=== PATIENT | male | born 1960 | race Hispanic/Latino ===

== ENCOUNTER 2022-10-19 03:03 | Inpatient (IN) | payer OTHER ==
[2022-10-19] VITALS (39 sets, daily range): BP systolic 133–191; BP diastolic 66–113
[~2022-10-19] VITALS: Ht 172.7 cm; Wt 84.4 kg
[2022-10-19] MEDS ORDERED: LORAZEPAM 2 MG/ML 1 ML VIAL ONE (03:09)
[2022-10-19] MEDS ORDERED: NITROGLYCERIN 0.4 MG SL TAB SL ONE (03:12)
[2022-10-19] MEDS ORDERED: NITROGLYCERIN 1GM OINT 1 INCH/1GM TD ONE ×2 (03:12→03:30)
[2022-10-19] MEDS ORDERED: HYDRALAZINE 20MG/ML VIAL ONE (03:12)
[2022-10-19] MEDS ORDERED: LABETALOL 20MG SYG IV ONE (03:13)
[2022-10-19 03:25] LABS: BASOPHILS % (AUTO) 0.8 % (0.0-5.0); EOSINOPHILS % (AUTO) 4.2 % (0.0-8.0); HEMATOCRIT 39.5 % (42-54); LYMPHOCYTES % (AUTO) 23.9 % (21.0-51.0); MEAN CORPUSCULAR HEMOGLOBIN 28.8 pg (27.0-33.0); MEAN CORPUSCULAR HGB CONC 31.1 g/dL (32.0-36.0); MEAN CORPUSCULAR VOLUME 92.5 fL (79-99); MONOCYTES % (AUTO) 6.2 % (3.0-13.0); NEUTROPHILS % (AUTO) 64.6 % (40.0-77.0); PLATELET COUNT (AUTO) 216 K/uL (130-400); RED BLOOD CELL COUNT(AUTO) 4.27 MIL/uL (4.50-6.20); RED CELL DISTRIBUTION WIDTH 15.8 % (11.0-15.5); WHITE BLOOD COUNT (AUTO) 10.9 K/uL (4.8-10.8)
[2022-10-19] MEDS ORDERED: NITROGLYCERIN 0.4 MG SL TAB SL PRN (03:30)
[2022-10-19] MEDS ORDERED: LABETALOL 20MG VIAL IV ONE ×2 (03:30)
[2022-10-19] MEDS ORDERED: LORAZEPAM 2 MG/ML 1 ML VIAL IVP ONE (03:30)
[2022-10-19] MEDS ORDERED: FUROSEMIDE 40MG VIAL IV ONE (03:30)
[2022-10-19 03:35] LABS: CREATININE 5.7 mg/dL (0.5-1.5); POTASSIUM 5.4 mmol/L (3.5-5.1)
[2022-10-19 03:40] LABS: ALBUMIN 4.1 g/dL (3.5-5.0); TOTAL PROTEIN, SERUM 8.3 g/dL (6.0-8.3)
[2022-10-19 04:07] LABS: B-TYPE NATRIURETIC PEPTIDE 1650 pg/mL (0-100)
[2022-10-19 04:13] LABS: APPEARANCE,URINE CLEAR (CLEAR); BILIRUBIN,URINE NEGATIVE (NEGATIVE); COLOR,URINE LIGHT-YELLOW (YELLOW); GLUCOSE, URINE (UA) NEGATIVE (NEGATIVE); KETONES,URINE NEGATIVE (NEGATIVE); LEUKOCYTE ESTERASE ,URINE NEGATIVE Leu/uL (NEGATIVE); NITRATE,URINE NEGATIVE (NEGATIVE); OCCULT BLOOD,URINE SMALL (NEGATIVE); PROTEIN,URINE 300 mg/dL (NEGATIVE); UROBILINOGEN,URINE 0.2 mg/dL (0.2-1.0)
[2022-10-19 04:18] LABS: BACTERIA,URINE RARE /HPF (None Seen)
[2022-10-19 04:49] LABS: ABG BASE EXCESS -1.8 mmol/L (-2.0-3.0); ABG HCO3 23.3 mmol/L (21.0-28.0); ABG OXYGEN SATURATION 99.6 % (95.0-99.0); ABG PCO2 41 mmHg (35-48)
[2022-10-19] MEDS ORDERED: ONDANSETRON 4MG INJ IVP PRN (07:30)
[2022-10-19] MEDS ORDERED: PHARMACY COMMUNICATION MISC SCH (07:30)
[2022-10-19] MEDS: PANTOPRAZOLE 40 MG TAB DR PO SCH (07:46)
[2022-10-19] MEDS ORDERED: SODIUM CHLORIDE 3% FOR INHALATION 4 ML/AMP VIAL.NEB IH ONE ×3 (08:24→18:20)
[2022-10-19] MEDS: CEFEPIME HCL 1 GM VIAL IVPB SCH ×2 (08:35→21:32)
[2022-10-19] MEDS: AMLODIPINE 5 MG TAB PO SCH (08:35)
[2022-10-19] MEDS: DOXYCYCLINE HYCLATE 100 MG TABLET PO SCH ×2 (08:35→21:33)
[2022-10-19] MEDS: Vitamin B Complex/Vit C/Folic Acid PO SCH (08:35)
[2022-10-19] MEDS: METOPROLOL TARTRATE 25 MG TAB PO SCH ×2 (08:35→21:33)
[2022-10-19] MEDS: BUDESONIDE 0.5 MG/2 ML INH IH SCH ×2 (09:12→18:40)
[2022-10-19] MEDS: ASPIRIN 81MG CHEW TAB PO SCH (10:02)
[2022-10-19] MEDS: HYDRALAZINE 20MG/ML VIAL IV PRN ×2 (10:03→14:55)
[2022-10-19 10:08] LABS: HEMOGLOBIN A1C 6.3 % (4.0-6.0)
[2022-10-19 10:28] LABS: THYROID STIMULATING HORMONE 2.45 uIU/mL (0.36-3.74)
[2022-10-19 10:41] LABS: CRP QUANTITATIVE 5.4 mg/L (0.00-9.0)
[2022-10-19 13:42] LABS: AMPHET/METH SCREEN,URINE NEGATIVE (NEGATIVE); BARBITURATE SCREEN, URINE NEGATIVE (NEGATIVE); BENZODIAZEPINES SCREEN,URINE NEGATIVE (NEGATIVE); CANNABINOID SCREEN,URINE NEGATIVE (NEGATIVE); COCAINE SCREEN,URINE NEGATIVE (NEGATIVE); OPIATE SCREEN,URINE NEGATIVE (NEGATIVE); PHENCYCLIDINE SCREEN,URINE NEGATIVE (NEGATIVE)
[2022-10-19] MEDS: HYDRALAZINE 25MG TABLET PO SCH ×3 (15:00→21:00)
[2022-10-19] MEDS ORDERED: HEPARIN 5,000 UNIT VIAL SQ SCH (16:00)
[2022-10-19] MEDS: ACETAMINOPHEN 500 MG TABLET PO PRN ×2 (18:12→21:33)
[2022-10-20] VITALS (26 sets, daily range): BP systolic 135–179; BP diastolic 66–122
[2022-10-20 03:24] LABS: ABG BASE EXCESS 0.2 mmol/L (-2.0-3.0); ABG HCO3 24.4 mmol/L (21.0-28.0); ABG OXYGEN SATURATION 94.4 % (95.0-99.0); ABG PCO2 38 mmHg (35-48)
[2022-10-20] MEDS: HYDRALAZINE 25MG TABLET PO SCH ×2 (04:08→13:59)
[2022-10-20 04:14] LABS: HEMATOCRIT 31.7 % (42-54); MEAN CORPUSCULAR HEMOGLOBIN 29.2 pg (27.0-33.0); MEAN CORPUSCULAR HGB CONC 31.2 g/dL (32.0-36.0); MEAN CORPUSCULAR VOLUME 93.5 fL (79-99); RED BLOOD CELL COUNT(AUTO) 3.39 MIL/uL (4.50-6.20); RED CELL DISTRIBUTION WIDTH 15.7 % (11.0-15.5); WHITE BLOOD COUNT (AUTO) 7.2 K/uL (4.8-10.8)
[2022-10-20 04:27] LABS: INR 1.03 (0.85-1.15); PROTHROMBIN TIME 11.2 SEC (9.6-11.6)
[2022-10-20 04:28] LABS: PARTIAL THROMBOPLASTIN TIME 31.3 SEC (26.3-35.5)
[2022-10-20 04:47] LABS: ALBUMIN 2.9 g/dL (3.5-5.0); CREATININE 5.6 mg/dL (0.5-1.5); MAGNESIUM 1.8 mg/dL (1.80-2.40); POTASSIUM 5.3 mmol/L (3.5-5.1); THYROID STIMULATING HORMONE 1.93 uIU/mL (0.36-3.74); TOTAL PROTEIN, SERUM 6.2 g/dL (6.0-8.3)
[2022-10-20] MEDS: BUDESONIDE 0.5 MG/2 ML INH IH SCH ×2 (06:29→18:46)
[2022-10-20] MEDS: PANTOPRAZOLE 40 MG TAB DR PO SCH (06:49)
[2022-10-20] MEDS: ACETAMINOPHEN 500 MG TABLET PO PRN ×2 (08:31→13:30)
[2022-10-20] MEDS ORDERED: CEFEPIME HCL 1 GM VIAL IVPB SCH (09:00)
[2022-10-20] MEDS: METOPROLOL TARTRATE 25 MG TAB PO SCH ×2 (11:33→20:25)
[2022-10-20] MEDS: AMLODIPINE 5 MG TAB PO SCH (13:55)
[2022-10-20] MEDS: ASPIRIN 81MG CHEW TAB PO SCH (13:55)
[2022-10-20] MEDS: Vitamin B Complex/Vit C/Folic Acid PO SCH (13:55)
[2022-10-20] MEDS: DOXYCYCLINE HYCLATE 100 MG TABLET PO SCH ×2 (13:55→20:26)
[2022-10-20] MEDS: HEPARIN 5,000 UNIT VIAL SQ SCH ×2 (14:02→20:25)
[2022-10-20] MEDS ORDERED: ISOSORBIDE MONO 30MG SR TAB PO ONE (14:30)
[2022-10-20] MEDS ORDERED: CEFEPIME HCL 1 GM VIAL IVP SCH (21:00)
[2022-10-20] MEDS ORDERED: HYDRALAZINE 25MG TABLET PO SCH (21:00)
[2022-10-21 03:00] VITALS: BP 179/59
[2022-10-21] MEDS: BUDESONIDE 0.5 MG/2 ML INH IH SCH (07:09)
[2022-10-21 07:54] LABS: BASOPHILS % (AUTO) 0.9 % (0.0-5.0); EOSINOPHILS % (AUTO) 5.5 % (0.0-8.0); HEMATOCRIT 31.6 % (42-54); LYMPHOCYTES % (AUTO) 13.7 % (21.0-51.0); MEAN CORPUSCULAR HEMOGLOBIN 29.1 pg (27.0-33.0); MEAN CORPUSCULAR VOLUME 91.1 fL (79-99); NEUTROPHILS % (AUTO) 70.6 % (40.0-77.0); PLATELET COUNT (AUTO) 173 K/uL (130-400); RED BLOOD CELL COUNT(AUTO) 3.47 MIL/uL (4.50-6.20); RED CELL DISTRIBUTION WIDTH 15.6 % (11.0-15.5); WHITE BLOOD COUNT (AUTO) 6.6 K/uL (4.8-10.8)
[2022-10-21] MEDS: ACETAMINOPHEN 500 MG TABLET PO PRN ×2 (07:54→13:42)
[2022-10-21] MEDS: Vitamin B Complex/Vit C/Folic Acid PO SCH (07:54)
[2022-10-21] MEDS: PANTOPRAZOLE 40 MG TAB DR PO SCH (07:54)
[2022-10-21] MEDS: DOXYCYCLINE HYCLATE 100 MG TABLET PO SCH (07:54)
[2022-10-21] MEDS: METOPROLOL TARTRATE 25 MG TAB PO SCH (07:55)
[2022-10-21] MEDS: AMLODIPINE 5 MG TAB PO SCH (07:55)
[2022-10-21] MEDS: HYDRALAZINE 25MG TABLET PO SCH ×2 (07:58→13:41)
[2022-10-21] MEDS: ASPIRIN 81MG CHEW TAB PO SCH (07:58)
[2022-10-21 08:00] VITALS: BP 187/92
[2022-10-21] MEDS: HEPARIN 5,000 UNIT VIAL SQ SCH (08:03)
[2022-10-21 08:23] LABS: % IRON SATURATION 30.7 % (30-44)
[2022-10-21 08:43] LABS: B-TYPE NATRIURETIC PEPTIDE 444 pg/mL (0-100)
[2022-10-21 08:53] LABS: CREATININE 6.8 mg/dL (0.5-1.5); MAGNESIUM 1.9 mg/dL (1.80-2.40); PHOSPHORUS 5.9 mg/dL (2.5-4.9); POTASSIUM 4.9 mmol/L (3.5-5.1)
[2022-10-21] MEDS ORDERED: ISOSORBIDE MONO 60MG SR TAB PO SCH (09:00)
[2022-10-21] MEDS ORDERED: ISOSORBIDE MONO 30MG SR TAB PO SCH (09:00)
[2022-10-21 12:00] VITALS: BP 166/89
[2022-10-21] MEDS ORDERED: METOPROLOL TARTRATE 25 MG TAB PO ONE (13:30)
[2022-10-21] MEDS ORDERED: Isosorbide Mono 60MG Sr Tab PO (13:36)
[2022-10-21] MEDS ORDERED: PANT40TA PO (13:36)
[2022-10-21] MEDS ORDERED: AMLO5TAB4 PO (13:36)
[2022-10-21] MEDS ORDERED: ASPI-1005 PO (13:36)
[2022-10-21] MEDS ORDERED: METO50TA18 PO (13:36)
[2022-10-21] MEDS ORDERED: Folic Acid/Vitamin B Comp W-C PO (13:36)
[2022-10-21] MEDS ORDERED: HYDR-4154 PO (13:36)
[2022-10-21] MEDS ORDERED: Nitroglycerin 0.4MG Sl Tab SL (13:36)
[2022-10-21 16:00] VITALS: BP 164/84
[2022-10-21] MEDS ORDERED: AMLODIPINE 5 MG TAB PO SCH ×2 (17:00→21:00)
[2022-10-21] MEDS ORDERED: METOPROLOL TARTRATE 25 MG TAB PO SCH (21:00)
== END 2022-10-21 18:45 | disposition home or self-care (01) | DRG 280 ==
LOC: EDH 03:03 → UNDOADMIN 03:04 → EDHIP 03:04 → 2BH 09:13 → 3DH 10-21 00:30
PROVIDERS: ADMIT Internal Medicine; ATTEND Internal Medicine
PROC: 5A1D70Z Performance of Urinary Filtration, Intermittent, Less than 6 Hours Per Day (ICD-10-PCS; principal; 2022-10-19)
PROC: 5A09357 Assistance with Respiratory Ventilation, Less than 24 Consecutive Hours, Continuous Positive Airway Pressure (ICD-10-PCS; 2022-10-19)
PROC: 5A1D70Z Performance of Urinary Filtration, Intermittent, Less than 6 Hours Per Day (ICD-10-PCS; 2022-10-20)
DX: I13.2 Hypertensive heart and chronic kidney disease with heart failure and with stage 5 chronic kidney disease, or end stage renal disease (principal); G92.8 Other toxic encephalopathy; I21.A1 Myocardial infarction type 2; Z20.822 Contact with and (suspected) exposure to COVID-19; J18.9 Pneumonia, unspecified organism; J96.01 Acute respiratory failure with hypoxia; N18.6 End stage renal disease; I50.33 Acute on chronic diastolic (congestive) heart failure; I16.1 Hypertensive emergency; E11.22 Type 2 diabetes mellitus with diabetic chronic kidney disease; E78.00 Pure hypercholesterolemia, unspecified; E87.5 Hyperkalemia; E66.01 Morbid (severe) obesity due to excess calories; F41.9 Anxiety disorder, unspecified; Z99.2 Dependence on renal dialysis; Z79.899 Other long term (current) drug therapy; Z91.119 Patient's noncompliance with dietary regimen due to unspecified reason; Z91.15 Patient's noncompliance with renal dialysis; Z91.199 Patient's noncompliance with other medical treatment and regimen due to unspecified reason
CPT/HCPCS: 36415; 36600; 70450; 71045; 76705; 80048; 80053; 80061; 80305; 81001; 82140; 82435; 82550; 82607; 82728; 82803; 82947; 83036; 83540; 83550; 83605; 83735; 83874; 83880; 84100; 84132; 84145; 84295; 84443; 84484; 85018; 85025; 85027; 85045; 85610; 85651; 85730; 86140; 86704; 86706; 87040; 87340; 87635; 87804; 90935; 93005; 93306; 93356; 94640; 94660; 94664; 96374; 96375; 99291; G0378; J0360; J0692; J1644; J1940; J2060; J3490

== ENCOUNTER 2023-02-12 04:16 | Emergency (ER) | payer BC ==
[~2023-02-12 04:16] MED LIST: AMLO5TAB4 PO; ASPI-1005 PO; Folic Acid/Vitamin B Comp W-C PO; HYDR25 PO; Isosorbide Mono 60MG Sr Tab PO; METO50TA18 PO; Nitroglycerin 0.4MG Sl Tab SL; PANT40TA PO
[2023-02-12] MEDS ORDERED: MORPHINE 4 MG SYG IM ONE (05:00)
[2023-02-12] MEDS ORDERED: TIMOLOL MALEATE 0.5% 5 ML BOTTLE OD ONE (05:30)
[2023-02-12] MEDS ORDERED: ACETAZOLAMIDE SODIUM 500 MG VIAL IV ONE (05:30)
[2023-02-12] MEDS ORDERED: PILOCARPINE HCL 2% 15 ML DROPS OD ONE (05:30)
[2023-02-12] MEDS ORDERED: ERYTHROMYCIN BASE 0.5% OPHTH OINT 1 GM TUBE OU SCH (06:00)
[2023-02-12] MEDS ORDERED: FLUORESCEIN SODIUM 1 STRIP STRIP OP SCH (06:00)
[2023-02-12] MEDS ORDERED: TETRACAINE HCL 0.5% 4 ML OPHTH SOLN OP ONE (06:00)
[2023-02-12] MEDS ORDERED: ONDANSETRON 4MG INJ ONE (06:43)
[2023-02-12] MEDS ORDERED: ONDANSETRON 4MG INJ IVP ONE (07:00)
[2023-02-12 07:01] VITALS: BP 139/85
== END 2023-02-12 07:02 | disposition home or self-care (01) ==
LOC: EDH 04:16
DX: H57.11 Ocular pain, right eye (principal); E11.9 Type 2 diabetes mellitus without complications; I10 Essential (primary) hypertension; Z79.82 Long term (current) use of aspirin; Z79.899 Other long term (current) drug therapy; Z99.2 Dependence on renal dialysis
CPT/HCPCS: 99284; 96374; 96375; 96372; J1120; J2405; J2270

== ENCOUNTER 2023-02-16 10:01 | Emergency (ER) | payer BC ==
[~2023-02-16] VITALS: Ht 167.6 cm; Wt 84.8 kg
[2023-02-16] MEDS ORDERED: TETRACAINE HCL 0.5% 4 ML OPHTH SOLN ONE (10:57)
[2023-02-16 12:21] VITALS: BP 204/101
[2023-02-16] MEDS ORDERED: ONDANSETRON 4MG INJ IVP ONE ×2 (12:30→15:00)
[2023-02-16] MEDS ORDERED: MORPHINE 4 MG SYG IVP ONE (12:30)
[2023-02-16] MEDS ORDERED: MORPHINE 2 MG SYG IVP ONE (15:00)
[2023-02-16] MEDS ORDERED: OFLO5DRO OD (15:03)
[2023-02-16] MEDS ORDERED: LATA2.5D14 OP (15:03)
[2023-02-16] MEDS ORDERED: PRED5DRO25 OP (15:03)
[2023-02-16] MEDS ORDERED: BRIM5DRO OP (15:03)
== END 2023-02-16 15:32 | disposition home or self-care (01) ==
LOC: EDH 10:01
DX: H57.11 Ocular pain, right eye (principal); E11.22 Type 2 diabetes mellitus with diabetic chronic kidney disease; I12.0 Hypertensive chronic kidney disease with stage 5 chronic kidney disease or end stage renal disease; N18.6 End stage renal disease; Z99.2 Dependence on renal dialysis; E78.00 Pure hypercholesterolemia, unspecified; Z79.82 Long term (current) use of aspirin; Z79.899 Other long term (current) drug therapy
CPT/HCPCS: 99284; 96374; 96375; 96376; J2405 ×2; J2270

== ENCOUNTER 2023-02-27 03:48 | Inpatient (IN) | payer BC ==
[~2023-02-27] VITALS: Ht 167.6 cm; Wt 86.0 kg
[2023-02-27] VITALS (16 sets, daily range): BP systolic 158–197; BP diastolic 87–102
[~2023-02-27 03:48] MED LIST changes: +BRIM5DRO OP; +LATA2.5D14 OP; +OFLO5DRO OD; +PRED5DRO25 OP
[2023-02-27] MEDS ORDERED: IPRATROPIUM/ALBUTEROL SULFATE 3 ML SOLUTION IH ONE (04:00)
[2023-02-27] MEDS ORDERED: HYDRALAZINE 20MG/ML VIAL IV ONE (04:00)
[2023-02-27] MEDS ORDERED: HYDRALAZINE 20MG/ML VIAL ONE (04:00)
[2023-02-27] MEDS ORDERED: FUROSEMIDE 40MG VIAL ONE (04:07)
[2023-02-27 04:20] LABS: BASOPHILS % (AUTO) 1.2 % (0.0-5.0); EOSINOPHILS % (AUTO) 3.1 % (0.0-8.0); HEMATOCRIT 27.4 % (42-54); LYMPHOCYTES % (AUTO) 19.3 % (21.0-51.0); MEAN CORPUSCULAR HEMOGLOBIN 28.9 pg (27.0-33.0); MEAN CORPUSCULAR HGB CONC 31.8 g/dL (32.0-36.0); MONOCYTES % (AUTO) 5.8 % (3.0-13.0); NEUTROPHILS % (AUTO) 70.2 % (40.0-77.0); PLATELET COUNT (AUTO) 190 K/uL (130-400); RED BLOOD CELL COUNT(AUTO) 3.01 MIL/uL (4.50-6.20); RED CELL DISTRIBUTION WIDTH 14.4 % (11.0-15.5); WHITE BLOOD COUNT (AUTO) 6.8 K/uL (4.8-10.8)
[2023-02-27 04:25] LABS: CREATININE 6.5 mg/dL (0.5-1.5); POTASSIUM 5.5 mmol/L (3.5-5.1)
[2023-02-27 04:29] LABS: ALBUMIN 3.8 g/dL (3.5-5.0); TOTAL PROTEIN, SERUM 6.7 g/dL (6.0-8.3)
[2023-02-27] MEDS ORDERED: FUROSEMIDE 100MG VIAL IVP ONE (04:30)
[2023-02-27 04:39] LABS: B-TYPE NATRIURETIC PEPTIDE 1080 pg/mL (0-100)
[2023-02-27] MEDS ORDERED: LORAZEPAM 2 MG/ML 1 ML VIAL ONE (05:15)
[2023-02-27] MEDS ORDERED: ACETAMINOPHEN 325 MG TAB PO PRN ×2 (05:30)
[2023-02-27] MEDS ORDERED: LACTULOSE 20 GM/30 ML UDCUP PO PRN (05:30)
[2023-02-27] MEDS ORDERED: ONDANSETRON 4MG INJ IV PRN (05:30)
[2023-02-27] MEDS ORDERED: LORAZEPAM 2 MG/ML 1 ML VIAL IVP ONE (05:30)
[2023-02-27] MEDS ORDERED: KAYEXALATE 15GM/60ML PO ONE (05:30)
[2023-02-27] MEDS: LABETALOL 20MG VIAL IV PRN ×3 (06:10→23:46)
[2023-02-27] MEDS: INSULIN HUMULIN R 100 UNIT/ML 3ML SQ SCH ×4 (07:22→20:56)
[2023-02-27 08:50] LABS: BASOPHILS % (AUTO) 0.9 % (0.0-5.0); EOSINOPHILS % (AUTO) 3.3 % (0.0-8.0); HEMATOCRIT 28.3 % (42-54); LYMPHOCYTES % (AUTO) 20.1 % (21.0-51.0); MEAN CORPUSCULAR HGB CONC 31.8 g/dL (32.0-36.0); MEAN CORPUSCULAR VOLUME 91.3 fL (79-99); MONOCYTES % (AUTO) 6.2 % (3.0-13.0); NEUTROPHILS % (AUTO) 69.2 % (40.0-77.0); PLATELET COUNT (AUTO) 183 K/uL (130-400); RED CELL DISTRIBUTION WIDTH 14.5 % (11.0-15.5); WHITE BLOOD COUNT (AUTO) 7.9 K/uL (4.8-10.8)
[2023-02-27 09:01] LABS: CREATININE 6.9 mg/dL (0.5-1.5); MAGNESIUM 1.9 mg/dL (1.80-2.40); PHOSPHORUS 5.3 mg/dL (2.5-4.9)
[2023-02-27] MEDS: FAMOTIDINE 20MG TAB PO SCH (09:54)
[2023-02-27] MEDS: AMLODIPINE 5 MG TAB PO SCH (10:04)
[2023-02-27] MEDS: HYDRALAZINE 25MG TABLET PO SCH ×3 (10:05→21:14)
[2023-02-27 20:33] LABS: HEPATITIS B SURFACE ANTIGEN Non-Reactive (Nonreactive)
[2023-02-28] VITALS: BP 174/80
[2023-02-28 04:00] VITALS: BP 178/89
[2023-02-28] MEDS ORDERED: METF-444 PO (04:55)
[2023-02-28 04:58] LABS: BASOPHILS % (AUTO) 1.1 % (0.0-5.0); EOSINOPHILS % (AUTO) 3.4 % (0.0-8.0); HEMATOCRIT 28.8 % (42-54); LYMPHOCYTES % (AUTO) 15.1 % (21.0-51.0); MEAN CORPUSCULAR HEMOGLOBIN 28.3 pg (27.0-33.0); MEAN CORPUSCULAR HGB CONC 31.6 g/dL (32.0-36.0); MEAN CORPUSCULAR VOLUME 89.4 fL (79-99); MONOCYTES % (AUTO) 6.9 % (3.0-13.0); NEUTROPHILS % (AUTO) 73.2 % (40.0-77.0); PLATELET COUNT (AUTO) 176 K/uL (130-400); RED BLOOD CELL COUNT(AUTO) 3.22 MIL/uL (4.50-6.20); RED CELL DISTRIBUTION WIDTH 13.8 % (11.0-15.5); WHITE BLOOD COUNT (AUTO) 7.1 K/uL (4.8-10.8)
[2023-02-28 05:17] LABS: CREATININE 6.2 mg/dL (0.5-1.5); MAGNESIUM 1.9 mg/dL (1.80-2.40); PHOSPHORUS 5.6 mg/dL (2.5-4.9); POTASSIUM 4.5 mmol/L (3.5-5.1)
[2023-02-28] MEDS: LABETALOL 20MG VIAL IV PRN (05:20)
[2023-02-28] MEDS ORDERED: HYDROXYZINE 25 MG TABLET PO ONE (05:30)
[2023-02-28] MEDS: INSULIN HUMULIN R 100 UNIT/ML 3ML SQ SCH ×3 (06:31→16:30)
[2023-02-28 08:00] VITALS: BP 160/90
[2023-02-28] MEDS: HYDRALAZINE 25MG TABLET PO SCH ×2 (08:37→13:37)
[2023-02-28] MEDS: FAMOTIDINE 20MG TAB PO SCH (08:37)
[2023-02-28] MEDS: AMLODIPINE 5 MG TAB PO SCH (08:38)
[2023-02-28] MEDS ORDERED: BRIMONIDINE TARTRATE 0.2% 5 ML BOTTLE OP SCH (09:00)
[2023-02-28] MEDS ORDERED: TIMOLOL MALEATE 0.5% 5 ML BOTTLE OP SCH (09:00)
[2023-02-28] MEDS: OFLOXACIN OD SCH ×3 (09:00→16:44)
[2023-02-28] MEDS: PREDNISOLONE 1% DROPS OP SCH ×2 (09:35→13:00)
[2023-02-28 11:50] VITALS: BP 142/74
[2023-02-28 16:00] VITALS: BP 142/84
[2023-02-28] MEDS ORDERED: LATANOPROST 2.5 ML DROPS OP SCH (21:00)
== END 2023-02-28 18:05 | disposition home or self-care (01) | DRG 640 ==
LOC: EDH 03:48 → EDHIP 05:23 → 3BH 21:45
PROVIDERS: ADMIT Hospitalist; ATTEND Hospitalist
PROC: 5A1D70Z Performance of Urinary Filtration, Intermittent, Less than 6 Hours Per Day (ICD-10-PCS; principal; 2023-02-27)
DX: E87.70 Fluid overload, unspecified (principal); N18.6 End stage renal disease; I12.0 Hypertensive chronic kidney disease with stage 5 chronic kidney disease or end stage renal disease; Z20.822 Contact with and (suspected) exposure to COVID-19; D64.9 Anemia, unspecified; E11.22 Type 2 diabetes mellitus with diabetic chronic kidney disease; E78.00 Pure hypercholesterolemia, unspecified; E87.5 Hyperkalemia; E87.6 Hypokalemia; Z86.73 Personal history of transient ischemic attack (TIA), and cerebral infarction without residual deficits; Z91.199 Patient's noncompliance with other medical treatment and regimen due to unspecified reason; Z99.2 Dependence on renal dialysis
CPT/HCPCS: 36415; 71045; 80048; 80053; 82948; 83735; 83880; 84100; 84484; 85025; 86704; 86706; 87340; 87635; 87804; 90935; 93005; 94640; 99291; C9803; G0378; J0360; J1940; J2060; J3490; J7510

== ENCOUNTER 2023-03-23 00:54 | Emergency (ER) | payer BC ==
[~2023-03-23] VITALS: Ht 167.6 cm; Wt 82.6 kg
[~2023-03-23 00:54] MED LIST changes: +METF-444 PO; -OFLO5DRO OD; -PRED5DRO25 OP
[2023-03-23 01:13] VITALS: BP 132/60
[2023-03-23 01:17] LABS: BASOPHILS % (AUTO) 0.6 % (0.0-5.0); EOSINOPHILS % (AUTO) 0.1 % (0.0-8.0); HEMATOCRIT 32.8 % (42-54); LYMPHOCYTES % (AUTO) 6.7 % (21.0-51.0); MEAN CORPUSCULAR HEMOGLOBIN 29.5 pg (27.0-33.0); MEAN CORPUSCULAR HGB CONC 31.7 g/dL (32.0-36.0); MEAN CORPUSCULAR VOLUME 92.9 fL (79-99); MONOCYTES % (AUTO) 1.9 % (3.0-13.0); NEUTROPHILS % (AUTO) 90.1 % (40.0-77.0); PLATELET COUNT (AUTO) 223 K/uL (130-400); RED BLOOD CELL COUNT(AUTO) 3.53 MIL/uL (4.50-6.20); RED CELL DISTRIBUTION WIDTH 15.3 % (11.0-15.5); WHITE BLOOD COUNT (AUTO) 11.8 K/uL (4.8-10.8)
[2023-03-23] MEDS ORDERED: ONDANSETRON ODT 4MG TAB SL ONE (01:30)
[2023-03-23 01:33] LABS: ALANINE AMINOTRANSFERASE 21 U/L (12-78); ALBUMIN 3.7 g/dL (3.5-5.0); ASPARTATE AMINOTRANSFERASE 13 U/L (10-37); CARBON DIOXIDE 19 mmol/L (21-32); CHLORIDE 95 mmol/L (101-111); GLOMERULAR FILTR. RATE CALC 5 mL/min (>90); GLUCOSE,RANDOM 84 mg/dL (70-105); SODIUM SERUM 137 mmol/L (136-145); TOTAL PROTEIN, SERUM 7.1 g/dL (6.0-8.3)
[2023-03-23 01:35] LABS: LIPASE < 50 U/L (114-286); UREA NITROGEN, BLOOD 80 mg/dL (7-18)
[2023-03-23 01:36] LABS: CREATININE 10.3 mg/dL (0.5-1.5)
[2023-03-23] MEDS ORDERED: CEFU500T67 PO (01:45)
[2023-03-23] MEDS ORDERED: ONDA-104 PO (01:45)
[2023-03-23] MEDS ORDERED: SODIUM BICARB 50MEQ 50ML VIAL 50 ML ONE (01:46)
[2023-03-23] MEDS ORDERED: CALCIUM GLUC 1GM/10ML VIAL ONE (01:46)
[2023-03-23] MEDS ORDERED: DEXTROSE 50%-WATER 50 ML DISP.SYRIN IV ONE (01:47)
[2023-03-23] MEDS ORDERED: CALCIUM GLUC 1GM 1 GM in 0.9%NACL 100ML 100 ML IV ONE (02:00)
[2023-03-23] MEDS ORDERED: SODIUM BICARB 8.4% 50ML SYRINGE IVP ONE (02:00)
[2023-03-23] MEDS ORDERED: DEXTROSE 50%-WATER 25 GM/50 ML VIAL IV ONE (02:00)
[2023-03-23] MEDS ORDERED: INSULIN HUMULIN R 100 UNIT/ML 3ML IV ONE (02:00)
== END 2023-03-23 02:23 | disposition home or self-care (01) ==
LOC: EDH 00:54
DX: A05.9 Bacterial foodborne intoxication, unspecified (principal); E87.5 Hyperkalemia; E78.00 Pure hypercholesterolemia, unspecified; I12.9 Hypertensive chronic kidney disease with stage 1 through stage 4 chronic kidney disease, or unspecified chronic kidney disease; E11.22 Type 2 diabetes mellitus with diabetic chronic kidney disease; N18.9 Chronic kidney disease, unspecified; Z79.82 Long term (current) use of aspirin; Z79.84 Long term (current) use of oral hypoglycemic drugs; Z79.899 Other long term (current) drug therapy; Z99.2 Dependence on renal dialysis
CPT/HCPCS: 99284; 80053; 83690; 85025; 36415; 96374; 96375; J3490; J7070 ×2; J0610 ×2; J1815

== ENCOUNTER 2023-04-29 07:59 | Inpatient (IN) | payer BC ==
[~2023-04-29] VITALS: Ht 167.6 cm; Wt 83.1 kg
[2023-04-29] VITALS (21 sets, daily range): BP systolic 103–151; BP diastolic 44–72; PULSE 60–78; RESP 18–22; TEMP 97.2–97.3; O2SAT 95–99
[~2023-04-29 07:59] MED LIST changes: +CEFU500T67 PO; +ONDA-104 PO
[2023-04-29 08:23] LABS: BASOPHILS % (AUTO) 1.4 % (0.0-5.0); EOSINOPHILS % (AUTO) 0.5 % (0.0-8.0); HEMATOCRIT 32.4 % (42-54); LYMPHOCYTES % (AUTO) 15.9 % (21.0-51.0); MEAN CORPUSCULAR HEMOGLOBIN 30.2 pg (27.0-33.0); MEAN CORPUSCULAR HGB CONC 30.9 g/dL (32.0-36.0); MEAN CORPUSCULAR VOLUME 97.9 fL (79-99); MONOCYTES % (AUTO) 4.7 % (3.0-13.0); PLATELET COUNT (AUTO) 218 K/uL (130-400); RED BLOOD CELL COUNT(AUTO) 3.31 MIL/uL (4.50-6.20); RED CELL DISTRIBUTION WIDTH 14.8 % (11.0-15.5); WHITE BLOOD COUNT (AUTO) 5.7 K/uL (4.8-10.8)
[2023-04-29 08:37] LABS: ALBUMIN 3.5 g/dL (3.5-5.0); TOTAL PROTEIN, SERUM 6.7 g/dL (6.0-8.3)
[2023-04-29 08:40] LABS: CREATININE 9.9 mg/dL (0.5-1.5)
[2023-04-29] MEDS ORDERED: DEXTROSE 50%-WATER 25 GM/50 ML VIAL IV ONE (09:00)
[2023-04-29] MEDS ORDERED: ALBUTEROL 0.083% 2.5 MG/3 ML INH IH SCH (09:00)
[2023-04-29] MEDS ORDERED: CALCIUM GLUC 1GM 1 GM in 0.9%NACL 100ML 100 ML IV ONE (09:00)
[2023-04-29] MEDS ORDERED: INSULIN HUMULIN R 100 UNIT/ML 3ML IV ONE (09:00)
[2023-04-29] MEDS ORDERED: GLUCAGON 1MG KIT 1 MG ML IM PRN (10:00)
[2023-04-29] MEDS ORDERED: DEXTROSE 50%-WATER 50 ML DISP.SYRIN IV PRN (10:00)
[2023-04-29] MEDS ORDERED: ONDANSETRON 4MG INJ IV PRN (10:00)
[2023-04-29] MEDS ORDERED: ACETAMINOPHEN 325 MG TAB PO PRN ×2 (10:00)
[2023-04-29] MEDS: MIDODRINE HCL 5 MG TABLET PO SCH (13:36)
[2023-04-30] VITALS (8 sets, daily range): BP systolic 128–169; BP diastolic 76–83; PULSE 72–81; RESP 18–20; O2SAT 97–98
[2023-04-30] MEDS ORDERED: AMLODIPINE 5 MG TAB PO ONE (01:00)
[2023-04-30 02:17] LABS: HEPATITIS B SURFACE ANTIGEN Non-Reactive (Nonreactive)
[2023-04-30 03:45] LABS: HEMATOCRIT 31.4 % (42-54); MEAN CORPUSCULAR HEMOGLOBIN 30.4 pg (27.0-33.0); MEAN CORPUSCULAR HGB CONC 33.1 g/dL (32.0-36.0); MEAN CORPUSCULAR VOLUME 91.8 fL (79-99); RED BLOOD CELL COUNT(AUTO) 3.42 MIL/uL (4.50-6.20); RED CELL DISTRIBUTION WIDTH 14.6 % (11.0-15.5); WHITE BLOOD COUNT (AUTO) 7.9 K/uL (4.8-10.8)
[2023-04-30 03:55] LABS: INR 1.05 (0.85-1.15); PROTHROMBIN TIME 12.1 SEC (9.6-11.6)
[2023-04-30 03:56] LABS: PARTIAL THROMBOPLASTIN TIME 33.9 SEC (26.3-35.5)
[2023-04-30 04:08] LABS: ALBUMIN 3.4 g/dL (3.5-5.0); CREATININE 7.3 mg/dL (0.5-1.5); POTASSIUM 4.4 mmol/L (3.5-5.1); THYROID STIMULATING HORMONE 1.36 uIU/mL (0.36-3.74); TOTAL PROTEIN, SERUM 6.4 g/dL (6.0-8.3)
[2023-04-30 04:28] LABS: HEMOGLOBIN A1C 5.1 % (4.0-6.0)
[2023-04-30] MEDS: AMLODIPINE 5 MG TAB PO SCH (08:08)
[2023-04-30] MEDS: MIDODRINE HCL 5 MG TABLET PO SCH (12:27)
[2023-04-30] MEDS ORDERED: LOSA1TAB37 PO (14:37)
[2023-04-30] MEDS ORDERED: NIFE-78 PO (14:40)
[2023-04-30] MEDS ORDERED: ATOR40TA71 PO (14:41)
[2023-04-30] MEDS ORDERED: ESCI-8 PO (14:42)
[2023-04-30] MEDS ORDERED: ASPIRIN 81MG CHEW TAB PO SCH (22:30)
[2023-05-01] VITALS (18 sets, daily range): BP systolic 163–186; BP diastolic 84–97; PULSE 60–88; RESP 18–20; TEMP 97.3–97.9; O2SAT 97
[2023-05-01 04:55] LABS: HEMATOCRIT 35.8 % (42-54); MEAN CORPUSCULAR HEMOGLOBIN 30.3 pg (27.0-33.0); MEAN CORPUSCULAR HGB CONC 32.4 g/dL (32.0-36.0); MEAN CORPUSCULAR VOLUME 93.5 fL (79-99); RED BLOOD CELL COUNT(AUTO) 3.83 MIL/uL (4.50-6.20); RED CELL DISTRIBUTION WIDTH 14.6 % (11.0-15.5); WHITE BLOOD COUNT (AUTO) 6.4 K/uL (4.8-10.8)
[2023-05-01 05:18] LABS: ALBUMIN 3.8 g/dL (3.5-5.0); POTASSIUM 4.5 mmol/L (3.5-5.1); TOTAL PROTEIN, SERUM 7.2 g/dL (6.0-8.3)
[2023-05-01 05:28] LABS: CREATININE 9.9 mg/dL (0.5-1.5)
[2023-05-01] MEDS: AMLODIPINE 5 MG TAB PO SCH (08:38)
[2023-05-01] MEDS: MIDODRINE HCL 5 MG TABLET PO SCH (08:38)
[2023-05-01] MEDS ORDERED: ASPIRIN 81MG CHEW TAB PO SCH (09:00)
[2023-05-01] MEDS ORDERED: METOPROLOL TARTRATE 50 MG TAB PO SCH (09:00)
[2023-05-01] MEDS ORDERED: Brimonidine Tartrate/Timolol (Combigan Eye Drops) OP SCH (09:00)
[2023-05-01] MEDS ORDERED: LOSARTAN/HYDROCHLOROTHIAZIDE 50-12.5MG TABLET PO SCH (09:00)
[2023-05-01] MEDS ORDERED: NIFEDIPINE ER 30 MG TAB PO SCH (09:00)
[2023-05-01] MEDS ORDERED: ATORVASTATIN 40 MG TABLET PO SCH (09:00)
[2023-05-01] MEDS ORDERED: CITALOPRAM 20 MG TABLET PO SCH (09:00)
[2023-05-01] MEDS ORDERED: NON-FORMULARY MEDICATION 1 EACH (Nifedipine (Nifedipine ER) 30 MG) PO SCH (09:00)
[2023-05-01] MEDS ORDERED: NON-FORMULARY MEDICATION 1 EACH (Escitalopram Oxalate 10 MG) PO SCH (09:00)
[2023-05-01] MEDS ORDERED: LATANOPROST 2.5 ML DROPS OP SCH (21:00)
== END 2023-05-01 13:19 | disposition home or self-care (01) | DRG 314 ==
LOC: EDH 07:59 → EDHIP 09:37 → 2DH 12:34
PROVIDERS: ADMIT Hospitalist; ATTEND Hospitalist
PROC: 5A1D70Z Performance of Urinary Filtration, Intermittent, Less than 6 Hours Per Day (ICD-10-PCS; principal; 2023-04-29)
PROC: 5A1D70Z Performance of Urinary Filtration, Intermittent, Less than 6 Hours Per Day (ICD-10-PCS; 2023-05-01)
DX: I95.89 Other hypotension (principal); N18.6 End stage renal disease; I13.2 Hypertensive heart and chronic kidney disease with heart failure and with stage 5 chronic kidney disease, or end stage renal disease; E11.649 Type 2 diabetes mellitus with hypoglycemia without coma; E11.22 Type 2 diabetes mellitus with diabetic chronic kidney disease; D63.1 Anemia in chronic kidney disease; E78.00 Pure hypercholesterolemia, unspecified; E87.5 Hyperkalemia; I25.10 Atherosclerotic heart disease of native coronary artery without angina pectoris; I50.9 Heart failure, unspecified; J44.9 Chronic obstructive pulmonary disease, unspecified; Z79.84 Long term (current) use of oral hypoglycemic drugs; Z82.3 Family history of stroke; Z82.49 Family history of ischemic heart disease and other diseases of the circulatory system; Z83.3 Family history of diabetes mellitus; Z99.2 Dependence on renal dialysis
CPT/HCPCS: 36415; 80053; 82948; 83036; 84132; 84443; 84484; 85025; 85027; 85610; 85730; 86704; 86706; 87340; 90935; 93005; 94640; G0378; J0610; J1815; J7070

== ENCOUNTER 2023-09-02 14:49 | Emergency (ER) | payer BC ==
[~2023-09-02] VITALS: Ht 165.1 cm; Wt 90.7 kg
[~2023-09-02 14:49] MED LIST changes: +ATOR40TA71 PO; -CEFU500T67 PO; +ESCI-8 PO; -Isosorbide Mono 60MG Sr Tab PO; +LOSA1TAB37 PO; +NIFE-78 PO; -ONDA-104 PO
[2023-09-02] MEDS ORDERED: HYDROCODONE/ACETAMINOPHEN 5/325 MG TAB PO ONE (16:30)
[2023-09-02] MEDS ORDERED: ONDANSETRON ODT 4MG TAB SL ONE (16:30)
[2023-09-02 16:40] VITALS: BP 128/72; PULSE 75; RESP 18; O2SAT 97
== END 2023-09-02 17:34 | disposition home or self-care (01) ==
LOC: EDH 14:49
DX: I13.2 Hypertensive heart and chronic kidney disease with heart failure and with stage 5 chronic kidney disease, or end stage renal disease (principal); E11.22 Type 2 diabetes mellitus with diabetic chronic kidney disease; N18.6 End stage renal disease; I50.9 Heart failure, unspecified; H57.11 Ocular pain, right eye; E78.00 Pure hypercholesterolemia, unspecified; I25.10 Atherosclerotic heart disease of native coronary artery without angina pectoris; J44.9 Chronic obstructive pulmonary disease, unspecified; Z79.82 Long term (current) use of aspirin; Z99.2 Dependence on renal dialysis; Z79.84 Long term (current) use of oral hypoglycemic drugs; Z79.899 Other long term (current) drug therapy

== ENCOUNTER 2025-05-16 10:40 | Emergency (ER) | payer BC ==
[~2025-05-16] VITALS: Ht 167.6 cm; Wt 83.5 kg
[~2025-05-16 10:40] MED LIST changes: -LATA2.5D14 OP; +LATA2.5D7 OP
--- NOTE | 2025-05-16 11:31 | ERN ---
ED Note History of Present Illness Stated Complaint: LACERATION TO LEFT ARM Chief Complaint: Laceration/Avulsion Time Seen by MD: 10:45 Time Seen by Midlevel: 10:45 Dictation: 64-year-old male presents to the ED for evaluation of laceration to the left forearm. Reports he accidentally cut himself with a chain saw onset prior to arrival. Laceration is near his lab. Patient reports he gets dialysis Thursday with last dialysis session yesterday. Denies shortness of breath, chest pain, numbness, tingling of extremity. Allergies: Coded Allergies: No Known Drug Allergies (Unverified Allergy, Unknown, 10/19/22) Home Meds Active Scripts Brimonidine Tartrate/Timolol (Combigan Eye Drops) 5 Ml Drops, 1 DROP OP BID, #60 DROP Right eye Prov:ROSA CRISTOBAL MD 02/16/23 Latanoprost (Latanoprost) 2.5 Ml Drops, 1 DROP OP PM, #60 DROP Right eye Prov:ROSA CRISTOBAL MD 02/16/23 Hydralazine HCl (Apresoline) 25 Mg Tab, 75 MG PO TID for 30 Days, #90 TAB Prov:TOYA VAZQUEZ NP 12/23/22 Pantoprazole Sodium (Protonix) 40 Mg Tablet.dr 40 MG PO ACBKFST for GERD for 90 Days, #90 TAB 0 Refills Prov:IRENE COUGHLIN Jr., MD 10/21/22 [Nitroglycerin 0.4MG Sl Tab] 0.4 MG TAB.SUBL No Conflict Check, 0.4 MG SL AD PRN for CHEST PAIN for 30 Days, #[address] one 0.4 mg tablet sublingually and repeat every 5 minutes if angina persists. May administer up to 3 tablets in a 15-minute period. If pain is not relieved or worsens 5 min after 1 sublingual dose seek immediate emergency medical attention. Prov:IRENE COUGHLIN Jr., MD 10/21/22 Metoprolol Tartrate (Metoprolol Tartrate) 50 Mg Tablet, 50 MG PO BID for HYPERTENSION STAGE II for 30 Days, #60 TAB 4 Refills Prov:IRENE COUGHLIN Jr., MD 10/21/22 [Folic Acid/Vitamin B Comp W-C] 1 CAP TAB No Conflict Check, 1 CAP PO DAILY for ESKD for 90 Days, #90 CAP 3 Refills Prov:IRENE COUGHLIN Jr., MD 10/21/22 Aspirin (ASPIRIN 81MG CHEW TAB) 81 Mg Tab.chew, 81 MG PO Q24H for NSTEMI TYPE II for 90 Days, #90 TAB.CHEW 3 Refills Prov:IRENE COUGHLIN Jr., MD 10/21/22 Amlodipine Besylate (Norvasc 5Mg Tab) 5 Mg Tablet, 5 MG PO BID for HYPERTENSION STAGE II for 30 Days, #60 TAB 3 Refills Prov:IRENE COUGHLIN Jr., MD 10/21/22 Reported Medications Escitalopram Oxalate (Escitalopram Oxalate) 10 Mg Tablet, 10 MG PO DAILY, TAB 04/30/23 Atorvastatin Calcium (Atorvastatin Calcium) 40 Mg Tablet, 40 MG PO DAILY, TAB 04/30/23 Nifedipine (Nifedipine ER) 30 Mg Tablet.er, 30 MG PO DAILY, TAB 04/30/23 Losartan/Hydrochlorothiazide (Losartan-Hctz 50-12.5 mg Tab) 1 Each Tablet, 1 EACH PO DAILY, TAB 04/30/23 Metformin HCl (Metformin HCl) 500 Mg Tablet, 1 TAB PO BID 02/28/23 Past Medical History Past Medical History: CAD, CHF, COPD, Diabetes-Type II, High Cholesterol, Heart Disease, Hypertension, Renal Failure Additional Past Medical Hx: DIALYSIS M-W-F Surgical History: Unknown Family History: Negative Social History: Negative, Lives with family RN Note Reviewed/Agreed w/PFSH: Yes Review of System Dictation Constitutional: Negative for fever,chills, and weight loss Eyes: Negative for injury, pain,redness, and discharge ENT: Negative for injury,pain or swelling Cardiovascular: Negative for chest pain, palpitations, and edema Respiratory: Negative for shortness of breath, cough, and wheezing, Abdomen/GI: Negative for abdominal pain, nausea, vomiting, diarrhea, and constipation Back: Negative for injury and pain : Negative for injury, bleeding and discharge MS/Extremity: Positive for injury and laceration of left forearm Skin: Negative for rash, and discoloration Neuro: Negative for headache, weakness, numbness, tingling, and seizure Psych: Negative for suicide ideation, homicidal ideation, and hallucinations Review of Systems: was completed Initial Vital Sign VS Vital Signs Date Time Temp Pulse Resp B/P (MAP) Pulse Ox O2 Delivery O2 Flow Rate FiO2 05/16/25 10:44 98.8 81 16 159/91 98 Room Air 0 05/16/25 10:54 21 Physical Exam Dictation General: awake, alert, NAD Head/Face: Normocephalic, atraumatic Eyes: PERRL, EOMI, vision at baseline ENT: oral cavity clear, TMs clear, no signs of infection Neck: Trachea midline, supple, no nuchal rigidity Cardiovascular: RRR, normal S1/S2, No MRGs, no JVD Respiratory: CTAB, no respiratory distress, No rales or wheezes Abdomen: Soft, non-tender, non-distended, normal bowel sounds, no guarding or rebound. Skin: Laceration of left forearm near LAVA. good thrill and bruit from LAVA at this time MS/Extremity: Pulses equal, no cyanosis, neurovascular intact, FROM Neuro: COAx4, GCS 15, strength 5/5, CN 2-12 intact, normal cerebellar exam, normal gait, Psych: Normal behavior, mood, and affect normal Results (Laboratory/Radiology) Labs Reviewed?: Yes X-RAY Comment: PATIENT: IRENE YAN MR#: [id number] : 1960 SEX: M AGE: 64 LOCATION: ED ORDER 1059 STATUS: [facility] REPORT#: [id number] SERVICE 1055 REASON: left forearm laceration ORDERING PHYSICIAN: JOJO ANDERSON PROCEDURE: FORARML - FOREARM 2VWS LT EXAM: CR left forearm, 2 View. CLINICAL HISTORY: left forearm laceration COMPARISON: None provided. FINDINGS: BONES: No acute fracture or aggressive appearing osseous lesion. JOINTS: No dislocation. The joint spaces are normal. SOFT TISSUES: There is soft tissue edema within the mid to distal forearm. Clips project over the distal forearm. IMPRESSION: 1. Soft tissue edema of the mid to distal forearm with surgical clips. 2. No acute osseous injury. /[place] DICTATED BY: ROSA TORRES Jr., MD DATE: 08/12/25 1332 ELECTRONICALLY SIGNED BY: ROSA TORRES Jr., MD DATE: 05/16/251331 Ultrasound Comment: PATIENT: IRENE YAN MR#: [id number] : 1960 SEX: M AGE: 64 LOCATION: EDH ORDER 105 STATUS: [facility] REPORT#: [id number] SERVICE 105 REASON: evaluate LAVA ORDERING PHYSICIAN: JOJO ANDERSON PROCEDURE: ART U UE - US ARTERIAL UNILA UPP EXT DUPL EXAM: US Duplex left Upper Extremity Arteries. CLINICAL HISTORY: hx to lateral forearm laceration TECHNIQUE: Real-time ultrasound scan of the arteries of the left upper extremity with 2-D grayscale, color Doppler flow and spectral waveform analysis. COMPARISON: None provided. FINDINGS: SUBCLAVIAN ARTERY: PSV measures 130 cm/sec. No occlusion or significant stenosis. Normal triphasic waveform. AXILLARY ARTERY: PSV measures 137 cm/sec. No occlusion or significant stenosis. Normal triphasic waveform. BRACHIAL ARTERY: PSV measures 91 cm/sec. No occlusion or significant stenosis. Monophasic waveform. RADIAL ARTERY: PSV measures 61 cm/sec. No occlusion or significant stenosis. Biphasic waveform. ULNAR ARTERY: PSV measures 70 cm/sec. No occlusion or significant stenosis. Normal triphasic waveform. LEFT A-V FIATULA: Radiocephalic fistula. PSV at the anastomosis site measures 220 cm/sec, and the cephalic vein measures 64 cm/sec. Patent thrill. No hematoma. IMPRESSION: 1. No significant arterial stenosis or occlusion in the left upper extremity. 2. Patent left radiocephalic AV fistula. /[place] DICTATED BY: ROSA TORRES Jr., MD DATE: 05/16/251356 ELECTRONICALLY SIGNED BY: ROSA TORRES Jr., MD DATE: 05/16/251356 ED Course ED Course Orders Procedure Category Date Status Time Forearm 2vws Lt RAD 05/16/25 Resulted 10:55 Us Arterial Unila Upp US 05/16/25 Resulted Ext Dupl 10:55 Lidocaine Hcl 1% 20ml PHA 05/16/25 Complete Vial (Lidocaine Hc 13:30 Acetaminophen 500mg PHA 05/16/25 Complete Tab (Tylenol 500mg T 13:17 Current Medications Medications (Trade) Dose Ordered Sig/Radha Route PRN Reason Start Time Stop Time Status Last Admin Dose Admin Acetaminophen (TYLenol 500MG TAB) 1,000 mg ONCE STAT PO 05/16/25 13:17 05/16/25 13:20 DC Lidocaine HCl (Lidocaine HCl 1% 20ml Vial) 20 ml ONCE ONCE INJ 05/16/25 13:30 05/16/25 13:31 DC Vital Signs Date Time Temp Pulse Resp B/P (MAP) Pulse Ox O2 Delivery O2 Flow Rate FiO2 05/16/25 10:54 98.8 74 18 165/95 99 Room Air* 0 21 05/16/25 10:44 98.8 81 16 159/91 98 Room Air 0 Medical Decision Making MDM MDM: Differential diagnosis: Laceration, Lava dysfunction Need for hospitalization: Patient does meet criteria for hospitalization. Need for emergency major/minor surgery: No I independently interpreted the test that were performed, results were reviewed by me and considered findings on radiology if ordered. Medical management and examination interpretation discussions were had by me with other qualified healthcare professionals as indicated for the patient's care. 64-year-old male presents to the ED for evaluation of laceration to the left forearm. Reports he accidentally cut himself with a chain saw onset prior to arrival. Laceration is near his lab. Patient reports he gets dialysis Thursday with last dialysis session yesterday. Denies shortness of breath, chest pain, numbness, tingling of extremity. Patient with a laceration in the left forearm very close to the Lava. Normal capillary refill less 2 seconds. Normal function of the distal extremity. LAVA with good thrill and bruit. X-rays were then no showed no foreign body. Ultrasound was ordered to make sure that lab as the function is not damage. Ultrasound shows good flow of the LAVA. Wound was thoroughly irrigated and cleansed in local anesthesia was placed and 10 sutures were placed to help approximate wound. Pressure bandage was then applied. Patient recommended follow up with the PCP and return in 7-10 days for suture removal. Return precautions discussed with patient. Patient verbalized understanding, agreed with plan, and all questions were answered at this time. Procedure Wound Location: upper extremity Wound's Depth, Shape: superficial Wound Explored: clean Irrigated w/ Saline (ccs): 200 Betadine Prep?: Yes Anesthesia: 1% Lidocaine Volume Anesthetic (ccs): 10 Wound Repaired With: sutures Suture Size/Type: 4:0, 3:0 Number of Sutures: 10 Sterile Dressing Applied?: Yes DX & DISP Disposition: Discharge Departure Impression: Primary Impression: Laceration of left forearm Condition: Stable Scripts Amoxicillin/Potassium Clav (Augmentin 500-125 Tablet) 500 Mg-125 Mg Tablet 1 TAB PO BID for 7 Days, #14 TAB 0 Refills Prov: JOJO ANDERSON 05/16/25 Additional Instructions: DISCHARGE HOME. REST. FOLLOW UP WITH PRIMARY CARE DRSharon IN 24 HOURS. RETURN TO THE ER FOR ANY ACUTE CHANGE. PATIENT WAS ALSO ADVISED TO FOLLOW-UP WITH PRIMARY CARE PHYSICIAN IN 1 TO 2 DAYS FOR CONTINUED MONITORING. ALL INSTRUCTIONS WERE GIVEN TO LAYMANS TERM AND PATIENT AGREEABLE TO DISCHARGE AND PROPER FOLLOW-UP. Referrals: CATHY ROTH MD (PCP) I have reviewed the case, and I agree with, Diagnosis and Plan JOJO ANDERSON May 16, 2025 11:31
--- NOTE | 2025-05-16 12:33 | HMCIMG ---
EXAM: CR left forearm, 2 View. CLINICAL HISTORY: left forearm laceration COMPARISON: None provided. FINDINGS: BONES: No acute fracture or aggressive appearing osseous lesion. JOINTS: No dislocation. The joint spaces are normal. SOFT TISSUES: There is soft tissue edema within the mid to distal forearm. Clips project over the distal forearm. IMPRESSION: 1. Soft tissue edema of the mid to distal forearm with surgical clips. 2. No acute osseous injury. /[place]
--- NOTE | 2025-05-16 12:58 | HMCIMG ---
EXAM: US Duplex left Upper Extremity Arteries. CLINICAL HISTORY: hx to lateral forearm laceration TECHNIQUE: Real-time ultrasound scan of the arteries of the left upper extremity with 2-D grayscale, color Doppler flow and spectral waveform analysis. COMPARISON: None provided. FINDINGS: SUBCLAVIAN ARTERY: PSV measures 130 cm/sec. No occlusion or significant stenosis. Normal triphasic waveform. AXILLARY ARTERY: PSV measures 137 cm/sec. No occlusion or significant stenosis. Normal triphasic waveform. BRACHIAL ARTERY: PSV measures 91 cm/sec. No occlusion or significant stenosis. Monophasic waveform. RADIAL ARTERY: PSV measures 61 cm/sec. No occlusion or significant stenosis. Biphasic waveform. ULNAR ARTERY: PSV measures 70 cm/sec. No occlusion or significant stenosis. Normal triphasic waveform. LEFT A-V FIATULA: Radiocephalic fistula. PSV at the anastomosis site measures 220 cm/sec, and the cephalic vein measures 64 cm/sec. Patent thrill. No hematoma. IMPRESSION: 1. No significant arterial stenosis or occlusion in the left upper extremity. 2. Patent left radiocephalic AV fistula. /[place]
[2025-05-16] MEDS ORDERED: AMOX-426 PO (14:13)
--- NOTE | 2025-05-16 14:30 | NUR ---
LACERATION REPAIR DONE TO LEFT ARM BY PROVIDER. SITE CLEANED AND BANDAGED WITH BOB WRAP
[2025-05-16] MEDS: LIDOCAINE HCL 1% 20 ML VIAL INJ ONE (14:44)
[2025-05-16 14:45] VITALS: BP 157/91; PULSE 78; RESP 18; TEMP 98.5; O2SAT 98
== END 2025-05-16 14:53 | disposition home or self-care (01) ==
LOC: EDH 10:40
DX: S51.812A Laceration without foreign body of left forearm, initial encounter (principal); I25.10 Atherosclerotic heart disease of native coronary artery without angina pectoris; I11.0 Hypertensive heart disease with heart failure; I50.9 Heart failure, unspecified; E11.9 Type 2 diabetes mellitus without complications; E78.00 Pure hypercholesterolemia, unspecified; J44.9 Chronic obstructive pulmonary disease, unspecified; Z79.82 Long term (current) use of aspirin; Z79.84 Long term (current) use of oral hypoglycemic drugs; Z79.899 Other long term (current) drug therapy; Z99.2 Dependence on renal dialysis; W29.3XXA Contact with powered garden and outdoor hand tools and machinery, initial encounter; Y93.89 Activity, other specified; Y92.89 Other specified places as the place of occurrence of the external cause; Y99.9 Unspecified external cause status
CPT/HCPCS: 12001; 73090; 93931; 99284

== ENCOUNTER 2025-05-23 11:39 | Emergency (ER) | payer BC ==
[~2025-05-23] VITALS: Ht 167.6 cm; Wt 81.6 kg
[~2025-05-23 11:39] MED LIST changes: +AMOX-426 PO
[2025-05-23 11:43] VITALS: BP 146/75; PULSE 99; RESP 20; TEMP 98.8; O2SAT 97
--- NOTE | 2025-05-23 12:17 | ERN ---
ED Note History of Present Illness Stated Complaint: SUTURE REMOVAL Chief Complaint: Suture/Staple Removal Time Seen by MD: 11:42 Dictation: PATIENT IS A 64-YEAR-OLD HERE MALE HERE WITH COMPLAINTS OF WANTING SUTURES REMOVED FROM HIS LEFT LATERAL FOREARM. HE CUT HIS FOREARM WITH A CHAIN SAW ON 05/16, SUTURES WERE PLACED AT [facility]. HE HAS HAD NO FEVER NO CHILLS NO NAUSEA VOMITING. DISTAL NEUROVASCULAR CMS INTACT. HE DID NOT GO SEE HIS PRIMARY CARE DOCTOR. Allergies: Coded Allergies: No Known Drug Allergies (Unverified Allergy, Unknown, 10/19/22) Home Meds Active Scripts Amoxicillin/Potassium Clav (Augmentin 500-125 Tablet) 500 Mg-125 Mg Tablet, 1 TAB PO BID for 7 Days, #14 TAB 0 Refills Prov:JOJO ANDERSON 05/16/25 Brimonidine Tartrate/Timolol (Combigan Eye Drops) 5 Ml Drops, 1 DROP OP BID, #60 DROP Right eye Prov:ROSA CRISTOBAL MD 02/16/23 Latanoprost (Latanoprost) 2.5 Ml Drops, 1 DROP OP PM, #60 DROP Right eye Prov:ROSA CRISTOBAL MD 02/16/23 Hydralazine HCl (Apresoline) 25 Mg Tab, 75 MG PO TID for 30 Days, #90 TAB Prov:TOYA VAZQUEZ NP 12/23/22 Pantoprazole Sodium (Protonix) 40 Mg Tablet.dr, 40 MG PO ACBKFST for GERD for 90 Days, #90 TAB 0 Refills Prov:IRENE COUGHLIN Jr., MD 10/21/22 [Nitroglycerin 0.4MG Sl Tab] 0.4 MG TAB.SUBL No Conflict Check, 0.4 MG SL AD PRN for CHEST PAIN for 30 Days, #[address] one 0.4 mg tablet sublingually and repeat every 5 minutes if angina persists. May administer up to 3 tablets in a 15-minute period. If pain is not relieved or worsens 5 min after 1 sublingual dose seek immediate emergency medical attention. Prov:IRENE COUGHLIN Jr., MD 10/21/22 Metoprolol Tartrate (Metoprolol Tartrate) 50 Mg Tablet, 50 MG PO BID for HYPERTENSION STAGE II for 30 Days, #60 TAB 4 Refills Prov:IRENE COUGHLIN Jr., MD 10/21/22 [Folic Acid/Vitamin B Comp W-C] 1 CAP TAB No Conflict Check, 1 CAP PO DAILY for ESKD for 90 Days, #90 CAP 3 Refills Prov:IRENE COUGHLIN Jr., MD 10/21/22 Aspirin (ASPIRIN 81MG CHEW TAB) 81 Mg Tab.chew, 81 MG PO Q24H for NSTEMI TYPE II for 90 Days, #90 TAB.CHEW 3 Refills Prov:IRENE COUGHLIN Jr., MD 10/21/22 Amlodipine Besylate (Norvasc 5Mg Tab) 5 Mg Tablet, 5 MG PO BID for HYPERTENSION STAGE II for 30 Days, #60 TAB 3 Refills Prov:IRENE COUGHLIN Jr., MD 10/21/22 Reported Medications Escitalopram Oxalate (Escitalopram Oxalate) 10 Mg Tablet, 10 MG PO DAILY, TAB 04/30/23 Atorvastatin Calcium (Atorvastatin Calcium) 40 Mg Tablet, 40 MG PO DAILY, TAB 04/30/23 Nifedipine (Nifedipine ER) 30 Mg Tablet.er, 30 MG PO DAILY, TAB 04/30/23 Losartan/Hydrochlorothiazide (Losartan-Hctz 50-12.5 mg Tab) 1 Each Tablet, 1 EACH PO DAILY, TAB 04/30/23 Metformin HCl (Metformin HCl) 500 Mg Tablet, 1 TAB PO BID 02/28/23 Past Medical History Past Medical History: Diabetes-Type II, High Cholesterol, Heart Disease, Hypertension, Renal Failure 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 Family History: Negative Social History: Negative, Lives with family RN Note Reviewed/Agreed w/PFSH: Yes Review of System Dictation CONSTITUTIONAL: NEGATIVE EXCEPT FOR HPI HEAD/FACE: NEGATIVE EXCEPT FOR HPI EENT: NEGATIVE EXCEPT FOR HPI RESPIRATORY: NEGATIVE EXCEPT FOR HPI GASTROINTESTINAL/ABDOMINAL: NEGATIVE EXCEPT FOR HPI GENITOURINARY: NEGATIVE EXCEPT FOR HPI MUSCULOSKELETAL: NEGATIVE EXCEPT FOR HPI INTEGUMENTARY: NEGATIVE EXCEPT FOR HPI LACERATION WITH SUTURES TO LEFT LATERAL FOREARM NEUROLOGICAL/PSYCH: NEGATIVE EXCEPT FOR HPI HEMATOLOGIC/LYMPHATIC: NEGATIVE EXCEPT FOR HPI ALL SYSTEMS NEGATIVE, EXCEPT NOTED ABOVE. 13 POINT REVIEW OF SYSTEMS ASSESSED AND ALL NEGATIVE EXCEPT FOR ABOVE. Initial Vital Sign VS Vital Signs Date Time Temp Pulse Resp B/P (MAP) Pulse Ox O2 Delivery O2 Flow Rate FiO2 05/23/25 11:40 98.8 99 20 146/75 97 Room Air 0 05/23/25 11:43 21 Physical Exam Dictation VITAL SIGNS REVIEWED GENERAL APPEARANCE: ALERT, ORIENTED X 3, NO ACUTE DISTRESS, WELL DEVELOPED, NOURISHED. NO PAIN HEAD AND FACE: NON-TRAUMATIC. EYES: PERRL, PINK CONJUNCTIVAS, EYELID NO TRAUMA, ANTERIOR CHAMBER WITH ARCUS SENILIS. EARS: PINNAS INTACT AND NO SIGNS OF TRAUMA OR ERYTHEMA EAR CANALS CLEAR AND NO DISCHARGE TM NO ERYTHEMA NOSE: NO DISCHARGE, NO BLEEDING. OROPHARYNX: MOUTH NORMAL, TONGUE PINK, PHARYNX CLEAR,NO ERYTHEMA, TONSILS NO EXUDATES, NO ABSCESSES NOTED, MUCOUS MEMBRANE MOIST NECK: SUPPLE, NON-TENDER, NO THYROMEGALY, NO MASSES, NO JVD, NO BRUITS BREAST:DEFERRED CHEST:NO TENDERNESS, NO CREPITUS, NO PARADOXICAL MOVEMENT, NO RETRACTIONS LUNGS:CLEAR, WELL-VENTILATED, SYMMETRIC, NO RALES, NO WHEEZING, NO RHONCHI, NO STRIDOR, GOOD BREATH SOUNDS BILATERALLY HEART: REGULAR RATE, REGULAR RHYTHM, NO MURMUR, NO GALLOPS VASCULAR: NO PERIPHERAL EDEMA, ABDOMEN: SOFT, POSITIVE BOWEL SOUNDS, NONDISTENDED, NO GUARDING, NONTENDER, NO REBOUND, NO MASSES NO HEPATOMEGALY, NO SPLENOMEGALY, NO CALLEJAS'S SIGN, NO HERNIAS. RECTAL: DEFERRED GENITAL: DEFERRED NEUROLOGICAL: NORMAL SPEECH, MOTOR FUNCTION INTACT, SENSORY FUNCTION INTACT MUSCULOSKELETAL: NECK NONTENDER, FULL RANGE OF MOTION, BACK NONTENDER, FULL RANGE OF MOTION, EXTREMITIES: NONTENDER, FULL RANGE OF MOTION SKIN: COLOR PINK, LACERATION WITH SUTURES TO LEFT LATERAL FOREARM. LACERATION IS POORLY APPROXIMATED. NO INFLAMMATION NO SWELLING NO DRAINAGE. NO ERYTHEMA LYMPHATIC: DEFERRED Results (Laboratory/Radiology) Labs Reviewed?: Yes ED Course ED Course Vital Signs Date Time Temp Pulse Resp B/P (MAP) Pulse Ox O2 Delivery O2 Flow Rate FiO2 05/23/25 11:43 98.8 99 20 146/75 97 Room Air* 0 21 05/23/25 11:40 98.8 99 20 146/75 97 Room Air 0 Medical Decision Making MDM MEDICAL DECISION-MAKING BASED ON LACERATION EVALUATION AND ASSESSMENT SUTURES WERE REMOVED WITH STERI-STRIPS APPLIED PATIENT DISCHARGED HOME WITH KEFLEX AND TOLD TO FOLLOW UP WITH HIS PRIMARY CARE DOCTOR WOUND INSTRUCTIONS IN [place] BY NATE BEGUMrn anesthetist Procedure Dictation: 1215/PROCEDURE EXPLAINED TO PATIENT HE AGREED TO PROCEED LACERATION TO LEFT LATERAL WRIST WITH 10 SIMPLE INTERRUPTED SUTURES LACERATION IS POORLY APPROXIMATED HOWEVER WOUND BED IS DRY NO ERYTHEMA NO SWELLING NO EXUDATE SUTURES REMOVED INTACT TINCTURE OF BENZOIN APPLIED WITH STERI-STRIPS PATIENT TOLERATED WELL AWARE TO KEEP THE WOUND CLEAN AND DRY AND FOLLOW UP WITH HIS DOCTOR. DX & DISP Disposition: Discharge Departure Impression: Primary Impression: Encounter for removal of sutures Condition: Stable Scripts Cephalexin (Cephalexin) 500 Mg Tablet 1 TAB PO TID for 10 Days, #30 TAB 0 Refills Prov: FELICITA SMITH NP 05/23/25 Additional Instructions: FOLLOW-UP WITH PRIMARY CARE PROVIDER IN 1 TO 2 DAYS. TAKE MEDICATIONS DIRECTED HERE IN THE EMERGENCY ROOM. OKAY TO CONTINUE HOME MEDICATIONS UNLESS OTHERWISE DISCUSSED DURING YOUR VISIT IN THE EMERGENCY ROOM TODAY. RETURN TO YOUR NEAREST EMERGENCY ROOM IF SYMPTOMS WORSEN OR IF THERE IS NO IMPROVEMENT. CALL 911 IF YOU NEED IMMEDIATE ASSISTANCE. TAKE TYLENOL OR MOTRIN OVER-THE-C OUNTER NEEDED AND IF NO CONTRAINDICATIONS ARE PRESENT. INCREASE ORAL HYDRATION. A WOUND CULTURE OR URINE CULTURE WAS ORDERED HERE IN THE EMERGENCY ROOM DEPARTMENT PLEASE FOLLOW-UP WITH PRIMARY CARE PROVIDER AND ADVISE THEM TO GET REPEAT PORTS FROM OUR FACILITY. IF YOU HAD ANY BOB WRAP/SPLINTS THAT WERE APPLIED HERE, PLEASE DO NOT REMOVE THEM UNTIL YOU SEE YOUR PRIMARY CARE OR SPECIALTY. KEEP STERI-STRIPS CLEAN AND DRY TO LEFT FOREARM. TAKE ANTIBIOTICS DIRECTED UNTIL GONE. SEE YOUR PRIMARY CARE DOCTOR FOR FOLLOW UP AND MANAGEMENT IN THE NEXT 1-2 DAYS. Referrals: CATHY ROTH MD (PCP) Time of Disposition: 12:27 I have reviewed the case, and I agree with, Diagnosis and Plan FELICITA SMITH NP May 23, 2025 12:17
[2025-05-23] MEDS ORDERED: CEPH500T PO (12:27)
--- NOTE | 2025-05-23 12:30 | NUR ---
10 SUTURES REMOVED FROM LT ARM
== END 2025-05-23 12:33 | disposition home or self-care (01) ==
LOC: EDH 11:39
DX: S51.812D Laceration without foreign body of left forearm, subsequent encounter (principal); I12.0 Hypertensive chronic kidney disease with stage 5 chronic kidney disease or end stage renal disease; E11.22 Type 2 diabetes mellitus with diabetic chronic kidney disease; N18.6 End stage renal disease; E78.00 Pure hypercholesterolemia, unspecified; Z79.84 Long term (current) use of oral hypoglycemic drugs; Z79.899 Other long term (current) drug therapy; Z79.82 Long term (current) use of aspirin; X58.XXXD Exposure to other specified factors, subsequent encounter
CPT/HCPCS: 99283